=== PATIENT | male | born 1970 | race African-American/Black ===

== ENCOUNTER 2023-12-28 21:24 | Inpatient (IN) | payer OTHER ==
[2023-12-28 21:41] VITALS: BMI 26.6
[2023-12-28 22:21] LABS: BASO % 0.5 % (0-2.0); HEMATOCRIT 38.5 % (35.4-49); HEMOGLOBIN 12.9 GM/dL (11.7-16.9); LYMPH % 42.8 % (8-40); MCH 32.3 pg (25.7-33.7); MCHC 33.6 g/dl (32.0-35.9); MEAN CELL VOLUME 96.1 fl (80-96); MEAN PLT VOLUME 7.1 fl (7.5-11.1); NEUT % 46.7 % (42.8-82.8); PLATELET COUNT 243 10^3/uL (134-434); RBC 4.01 M/mm3 (4.00-5.60); RDW 16.1 % (11.9-15.9); WHITE BLOOD COUNT 4.5 K/mm3 (4.0-10.0)
[2023-12-28] MEDS ORDERED: ACETAMINOPHEN INJECTION 100 ML IVPB ONE (22:33)
[2023-12-28] MEDS ORDERED: levETIRAcetam 500 MG/5 ML INJECTION VIAL IVPB ONE ×2 (22:33→23:18)
[2023-12-28 22:40] LABS: POTASSIUM 4.2 mmol/L (3.5-5.1)
[2023-12-28 22:42] LABS: BLOOD UREA NITROGEN 19.4 mg/dL (7-18); CALCIUM 8.6 mg/dL (8.5-10.1); MAGNESIUM 2.3 mg/dL (1.8-2.4)
[2023-12-28 22:43] LABS: ALBUMIN 3.4 g/dl (3.4-5.0)
[2023-12-28 22:45] LABS: CREATININE 0.9 mg/dL (0.55-1.3)
[2023-12-28 22:47] LABS: BILIRUBIN,TOTAL 0.8 mg/dL (0.2-1); TOT PROT 6.9 g/dl (6.4-8.2)
[2023-12-28] MEDS: levETIRAcetam 500 MG/5 ML INJECTION VIAL IVPB ONE (23:17)
[2023-12-28] MEDS: ACETAMINOPHEN 1000 MG/100 ML BAG IVPB ONE (23:18)
[2023-12-28] MEDS: SODIUM CHLORIDE 0.9% 500 ML INFUS.BAG IV ONE (23:20)
[2023-12-29 03:14] LABS: PH,URINE 5.5 (5.0-8.0); URINE APPEARANCE CLEAR; URINE BILIRUBIN 1+ (NEGATIVE); URINE COLOR DK YELLOW; URINE GLUCOSE (UA) NEGATIVE (NEGATIVE); URINE KETONE 1+ (NEGATIVE); URINE LEUK ESTERASE NEGATIVE (NEGATIVE); URINE NITRITE NEGATIVE (NEGATIVE); URINE PROTEIN TRACE (NEGATIVE)
[2023-12-29] MEDS ORDERED: levETIRAcetam 500 MG TABLET (FP) PO ONE (08:40)
[2023-12-29] MEDS: levETIRAcetam 500 MG TABLET (FP) PO SCH (08:50)
[2023-12-29 09:01] VITALS: BP 134/93; PULSE 87; RESP 19; TEMP 97.7
[2023-12-29 09:54] LABS: OPIATES, URI NEGATIVE (NEGATIVE); URINE AMPHETAMINES NEGATIVE (NEGATIVE)
[2023-12-29 09:55] LABS: METHADONE, UR NEGATIVE (NEGATIVE); PHENCYCLIDINE,URINE NEGATIVE (NEGATIVE); URINE BARBITURATES NEGATIVE (NEGATIVE)
[2023-12-29] MEDS ORDERED: levETIRAcetam 500 MG TABLET (FP) PO SCH (10:00)
[2023-12-29 10:08] LABS: COCAINE, UR POSITIVE (NEGATIVE); URINE BENZODIAZEPINES POSITIVE (NEGATIVE)
== END 2023-12-29 09:09 | disposition home or self-care (01) | DRG 53 ==
LOC: JER 21:24 → JERBED 12-29 00:29
PROVIDERS: ADMIT Internal Medicine; ATTEND Internal Medicine
DX: G40.909 Epilepsy, unspecified, not intractable, without status epilepticus (principal); I10 Essential (primary) hypertension; M25.552 Pain in left hip; M79.605 Pain in left leg; R53.1 Weakness; Z59.00 Homelessness unspecified; Z91.199 Patient's noncompliance with other medical treatment and regimen due to unspecified reason
CPT/HCPCS: 36415; 70450-TC; 71045-TC-FY; 72125-TC; 72128-TC; 72131-TC; 73502-TC-LT-FY; 73552-TC-LT-FY; 73590-TC-LT-FY; 80053; 80177; 80307; 81003; 83605; 83735; 84484; 85025; 87086; 93005; 93010; 99285-25; J0131